=== PATIENT | female | born 1985 | race Caucasian/White ===

== ENCOUNTER 2018-04-02 00:19 | Outpatient (CLI) | payer MEDICAID, SELFPAY ==
--- NOTE | 2018-04-02 12:53 | DI.US_ITS ---
SYMPTOMS/DIAGNOSIS: CHRONIC PELVIC AND PERINEAL PAIN, R10.2, TUGGING SENSATION, H/O POLYCYSTIC OVARIAN SYNDROME PELVIC ULTRASOUND: Transabdominal and transvaginal examination was performed. Comparison is 06/23/15. The uterus is retroverted. The uterus measures 7.6 cm long x 4.4 cm AP x 5 cm transverse. The endometrial stripe is at the upper limits of normal at 1.2 cm. No myometrial mass is present. The left ovary measures 2.9 x 2.4 x 2.6 cm. There are a few small simple follicular cysts. There is a 2 x 1.4 x 1.6 cm simple left ovarian cyst present. There is normal blood flow to the left ovary. No evidence of torsion is present. The right ovary measures 3.6 x 2.2 x 1.9 cm. There are multiple (greater than 12) simple cysts seen in the periphery of the right ovary. There is normal blood flow to the right ovary. No evidence of torsion is present. No free pelvic fluid or hydronephrosis is identified. IMPRESSION: No acute pelvic process.
== END 2018-04-02 00:39 ==
PROVIDERS: PCP Family Medicine; Visit Provider Naturopath
DX: R10.2 Pelvic and perineal pain (principal); E28.2 Polycystic ovarian syndrome
CPT/HCPCS: 76830; 76856

== ENCOUNTER 2018-04-24 02:39 | Outpatient (CLI) | payer MEDICAID, SELFPAY | END 2018-04-24 02:59 | PROVIDERS: PCP Family Medicine; Visit Provider Naturopath | DX: R00.8 Other abnormalities of heart beat (principal) | CPT/HCPCS: 93005; 93010 ==

== ENCOUNTER 2018-08-10 12:42 | Outpatient (REF) | payer MEDICAID, SELFPAY ==
--- NOTE | 2018-08-10 11:00 | PAPFT_PTH ---
PATIENT: Joselin Berman LOC: [facility] U#:[id number] AGE/SX: 33/F ROOM: RE08/10/[address]: Chana Zuniga : 1985 BED: DIS: 08/10/2018 SPEC #: [id number] RECD: 08/11/18 12:24 STATUS: MICHAEL REJoe #: [id number] SANDRO: 08/10/18 11:[address]: Chana Zuniga DEPT: [facility] Cytology RECD BY: Parul Barriga Tissues: 1 - CX/ENDOCX FOR PAP SMEARS Procedures: PAP THIN PREP/UVM Screening Comments: [id number] (UNSATISFACTORY FOR EVALUATION)
== END 2018-08-10 13:02 ==
LOC: NCHCN 12:42
PROVIDERS: PCP Family Medicine; Visit Provider Family Medicine
DX: Z12.4 Encounter for screening for malignant neoplasm of cervix (principal); Z11.51 Encounter for screening for human papillomavirus (HPV); Z00.00 Encounter for general adult medical examination without abnormal findings
CPT/HCPCS: 88142; 87624

== ENCOUNTER 2018-09-18 15:26 | Outpatient (REF) | payer MEDICAID, SELFPAY ==
--- NOTE | 2018-09-18 14:30 | PAPFT_PTH ---
PATIENT: Joselin Berman LOC: [facility] U#:[id number] AGE/SX: 33/F ROOM: RE09/18/[address]: Anika Hess MD : 1985 BED: DIS: 09/18/2018 SPEC #: [id number] RECD: 09/18/18 18:08 STATUS: MICHAEL REQ #: [id number] SANDRO: 09/18/18 14:[address]: Anika Hess DEPT: [facility] Cytology RECD BY: Pennie Coronado ENTERED: 09/18/18 18:08 SP TYPE: PAPFT OTHR DR: Chana Zuniga Tissues: 1 - CX/ENDOCX FOR PAP SMEARS Procedures: PAP THIN PREP/UVM Screening HPV DNA PROBE Comments: [id number]
== END 2018-09-18 15:46 ==
LOC: LBN 15:26
PROVIDERS: PCP Family Medicine; Visit Provider Obstetrics & Gynecology
DX: Z12.4 Encounter for screening for malignant neoplasm of cervix (principal); Z11.51 Encounter for screening for human papillomavirus (HPV); R87.610 Atypical squamous cells of undetermined significance on cytologic smear of cervix (ASC-US)
CPT/HCPCS: 88142; 87624

== ENCOUNTER 2019-08-18 20:37 | Outpatient (REF) | payer MEDICAID, SELFPAY ==
--- NOTE | 2019-08-18 16:00 | PAPFT_PTH ---
PATIENT: Joselin Berman [facility] U[id number] AGE/SX: 34/F ROOM: RE08/18/[address]: Chana Zuniga : 1985 BED: DIS: 08/18/2019 SPEC #: [id number] RECD: 08/19/19 12:47 STATUS: MICHAEL REJoe #: [id number] SANDRO: 08/18/19 16:[address]: Chana Zuniga DEPT: [facility] Cytology RECD BY: Pennie Coronado Tissues: 1 - CX/ENDOCX FOR PAP SMEARS Procedures: PAP THIN PREP/UVM Screening HPV DNA PROBE Comments: [id number]
== END 2019-08-18 20:57 ==
LOC: NCHCN 20:37
PROVIDERS: PCP Family Medicine; Visit Provider Family Medicine
DX: Z12.4 Encounter for screening for malignant neoplasm of cervix (principal); Z11.51 Encounter for screening for human papillomavirus (HPV)
CPT/HCPCS: 88142; 87624

== ENCOUNTER 2019-08-30 15:14 | Outpatient (REF) | payer MEDICAID, SELFPAY ==
[2019-09-01 11:38] LABS: Campylobacter PCR Negative (Negative); Salmonella PCR Negative (Negative); Shiga Toxin PCR Negative (Negative); Shigella/Enteroinvasive Ecoli Negative (Negative)
== END 2019-08-30 15:34 ==
LOC: NCHCN 15:14
PROVIDERS: PCP Family Medicine; Visit Provider Family Medicine
DX: R19.7 Diarrhea, unspecified (principal)
CPT/HCPCS: 87329; 87505; 83630; 87324

== ENCOUNTER 2019-11-04 02:55 | Outpatient (CLI) | payer MEDICAID, SELFPAY ==
[2019-11-04 13:43] LABS: Abs Immature Grans 0.03 10^3/uL (0.0-0.06); Absolute Basophil Count 0.04 10^3/uL (0.0-0.2); Absolute Eosinophil Count 0.06 10^3/uL (0.0-0.7); Absolute Lymphocyte Count 2.57 10^3/uL (1.2-3.4); Absolute Neutrophil Count 5.95 10^3/uL (1.2-6.7); Basophils % 0.4; Eosinophils % 0.6; HCT 40.9 % (36.0-46.0); HGB 13.4 g/dL (11.2-15.7); Immature Grans % 0.3; Lymphocytes % 26.9; MCH 31.2 pg (27.0-33.0); MCHC 32.8 % (32.0-36.0); MCV 95.3 fL (80-95); MPV 9.4 fL (8.0-11.0); Monocytes % 9.4; Neutrophils % 62.4; Nucleated RBC 0 %; Platelet Count 233 10^3/uL (130-400); RBC 4.29 10^6/uL (3.93-5.22); RDW 12.3 % (11.7-14.6); RDW-SD 42.5 fL; WBC 9.55 10^3/uL (4.4-10.8)
[2019-11-04 15:26] LABS: ALT 21 U/L (14-59); AST 13 U/L (15-37); Albumin 3.8 g/dL (3.4-5.0); Alkaline Phosphatase 69 U/L (46-116); BUN 16 mg/dL (7-18); Bilirubin, Total 0.4 mg/dL (0.2-1.0); CREATININE 0.75 mg/dL (0.55-1.02); Chloride 107 mmol/L (98-107); Glucose 79 mg/dL (74-106); Potassium 4.3 mmol/L (3.5-5.1); Sodium 141 mmol/L (136-145); Total Protein 6.9 g/dL (6.4-8.2)
[2019-11-04 15:44] LABS: Vitamin D 25 Total 33.2 ng/ml (30-100)
== END 2019-11-04 03:15 ==
PROVIDERS: PCP Family Medicine; Visit Provider Naturopath
DX: F41.9 Anxiety disorder, unspecified (principal); R53.83 Other fatigue
CPT/HCPCS: 36415; 80053; 81291; 82306; 85025

== ENCOUNTER 2020-09-07 09:43 | Outpatient (REF) | payer MEDICAID, SELFPAY ==
[2020-09-09 13:22] LABS: COVID-19 RT-PCR UVMMC Result Negative (Negative)
== END 2020-09-07 09:44 | disposition home or self-care (01) ==
LOC: NCHCN 09:43
PROVIDERS: PCP Family Medicine; Visit Provider Family Medicine
DX: Z20.822 Contact with and (suspected) exposure to COVID-19 (principal); J02.9 Acute pharyngitis, unspecified; R06.09 Other forms of dyspnea
CPT/HCPCS: U0003

== ENCOUNTER 2020-09-14 05:02 | Outpatient (CLI) | payer MEDICAID, SELFPAY ==
[2020-09-14] MEDS: Inhaler, Assist Device 1 EACH MC (17:55)
[2020-09-14] MEDS: Methacholine 100 MG VIAL IH (17:55)
[2020-09-14] MEDS: Albuterol HFA 18 GM 200 PUFF INH IH (17:55)
--- NOTE | 2020-09-17 18:50 | W.PFT ---
Date of service: 09/14/20 Time of Service: 15:03 Pulmonary Function Test Result Requesting Provider Chana Zuniga Interpretation Spirometry: There is no baseline airflow obstruction. There was a 14% decreased in FEV1 with administration of 16.0mg/mL methacholine. Impression Although there was not a 20% decrease in FEV1 with methacholine, the FVC decreased 23% and the patient experienced chest tightness with test. Technically a negative bronchoprovocation test. Note: Given decrease in FVC would correlate clinically the need for asthma treatment. Clinical Correlation therefore is recommended.
--- NOTE | 2020-09-17 18:57 | W.PFT ---
Date of service: 09/14/20 Time of Service: 15:03 Pulmonary Function Test Result Interpretation Spirometry: There is no airflow limitation. Lung Volumes: Lung volumes are normal Diffusion Capacity: Diffusion is normal Airway Pressure: Airway resistance is normal Impression Normal pulmonary function tests Clinical Correlation therefore is recommended.
== END 2020-09-14 05:03 | disposition home or self-care (01) ==
LOC: RT 05:03
PROVIDERS: PCP Family Medicine; Visit Provider Family Medicine
DX: R06.09 Other forms of dyspnea (principal)
CPT/HCPCS: 94060; 94726; 94729; 95070; 94010; J7674

== ENCOUNTER 2020-11-29 03:43 | Outpatient (CLI) | payer MEDICAID, SELFPAY ==
[2020-11-29 12:21] LABS: Abs Immature Grans 0.02 10^3/uL (0.0-0.06); Absolute Basophil Count 0.04 10^3/uL (0.0-0.2); Absolute Eosinophil Count 0.08 10^3/uL (0.0-0.7); Absolute Lymphocyte Count 2.17 10^3/uL (1.2-3.4); Absolute Monocyte Count 0.65 10^3/uL (0.1-0.8); Absolute Neutrophil Count 4.13 10^3/uL (1.2-6.7); Basophils % 0.6; Eosinophils % 1.1; HCT 43.5 % (36.0-46.0); Immature Grans % 0.3; Lymphocytes % 30.6; MCH 30.7 pg (27.0-33.0); MCHC 32.2 % (32.0-36.0); MCV 95.4 fL (80-95); MPV 9.8 fL (8.0-11.0); Monocytes % 9.2; Neutrophils % 58.2; Nucleated RBC 0 %; Platelet Count 238 10^3/uL (130-400); RBC 4.56 10^6/uL (3.93-5.22); RDW 12.2 % (11.7-14.6); RDW-SD 42.8 fL; WBC 7.09 10^3/uL (4.4-10.8)
[2020-11-29 13:11] LABS: Iron 102 ug/dL (50-170); Total Iron Binding Capacity 347 ug/dL (250-450); Transferrin Sat 29 % (15-50)
[2020-11-29 13:39] LABS: ALT 21 U/L (14-59); AST 12 U/L (15-37); Albumin 4.2 g/dL (3.4-5.0); Alkaline Phosphatase 71 U/L (46-116); Anion Gap 7.4 mmol/L (3-11); BUN 14 mg/dL (7-18); Bilirubin, Total 0.4 mg/dL (0.2-1.0); CO2 27.6 mmol/L (21.0-32.0); CREATININE 0.8 mg/dL (0.55-1.02); Calcium 9.4 mg/dL (8.5-10.1); Chloride 105 mmol/L (98-107); Ferritin 32 ng/mL (8-252); Folate > 20.0 ng/mL (8.6-20.0); Glucose 95 mg/dL (74-106); Potassium 4.7 mmol/L (3.5-5.1); Sodium 140 mmol/L (136-145); Total Protein 7.8 g/dL (6.4-8.2); Vitamin B12 1724 pg/mL (193-986)
[2020-12-04 17:28] LABS: Candida albicans IgG 33.3 mcg/mL (<52.0)
== END 2020-11-29 03:44 | disposition home or self-care (01) ==
LOC: LBO 03:43
PROVIDERS: PCP Family Medicine; Visit Provider Naturopath
DX: R58 Hemorrhage, not elsewhere classified (principal); R14.0 Abdominal distension (gaseous)
CPT/HCPCS: 36415; 80053; 86001; 82607; 82728; 82746; 83540; 83550; 85025

== ENCOUNTER 2020-12-15 02:19 | Outpatient (CLI) | payer MEDICAID, SELFPAY ==
--- NOTE | 2020-12-15 13:57 | DI.US_ITS ---
APPROVED REPORT EXAM: Comprehensive 2D, Doppler, and color-flow Echocardiogram Patient Location: Out-Patient Communications Program Manager: Eloise Mcknight RDCS (AE) Indications: Dyspnea on exertion Other Information Study Quality: Adequate Conclusion Normal left ventricular wall thickness and chamber size. Estimated ejection fraction is 60 to 65%. There are no segmental wall motion abnormalities Normal right ventricular size and systolic function Both atria are normal in size There are no structural or hemodynamically significant valvular abnormalities Normal estimated right ventricular systolic pressure, 16 mmHg Wall motion Left Ventricle The left ventricle is normal size. The left ventricular systolic function is normal. The left ventric ular ejection fraction is within the normal range. There is normal left ventricular wall thickness. T here is normal LV segmental wall motion. There is no ventricular septal defect visualized. LVEF is 60 -65%. Right Ventricle The right ventricle is normal size. The right ventricular systolic function is normal. The RVSP is 15 .9 mmHg. Atria The left atrium size is normal. The right atrium size is normal. The interatrial septum is intact wit h no evidence for an atrial septal defect. Aortic Valve The aortic valve is normal in structure. Aortic valve is trileaflet. There is no aortic valvular sten osis. No aortic regurgitation is present. Mitral Valve The mitral valve is normal in structure. No evidence of mitral valve stenosis. Trace mitral regurgita tion. Tricuspid Valve The tricuspid valve is normal in structure. There is no tricuspid valve stenosis. Trace tricuspid reg urgitation. Pulmonic Valve The pulmonary valve is normal in structure. There is no pulmonic valvular stenosis. There is no pulmo cesar valvular regurgitation. Great Vessels The aortic root is normal in size. Ascending aorta is not well visualized. Aortic arch is normal in c aliber. IVC is normal in size and collapses >50% with inspiration. Pericardium There is no pericardial effusion. 2D Dimensions IVSD d PLAX 0.81 cm F: 0.6-1.0 LV Vol A2C d MOD 93.5 mL LVPW d PLAX 0.89 cm F: 0.6 - 1.0 LV Vol A4C d MOD 91.8 mL LVID d PLAX 4.08 cm F: 3.8 - 5.2 LA vol/ BSA A2C s A-L 16.5 mL/m2 LVDs 2.75 cm F: 2.2 - 3.5 LA vol/ BSA A4C s A-L 22.0 mL/m2 Ao Root d 2.38 cm F: 2.7 - 3.3 LA Vol/ BSA Biplane s A-L 20.2 mL/m2 RA Area A4C 7.49 cm2 LA Area A4C s MOD 13.72 cm2 RA Vol/ BSA A4C s A-L 9.6 mL/m2 LA Area A2C s MOD 11.21 cm2 LV EF Teichholz 60.6 % LV EF A4C MOD 58.3 % LVEF ([employer]) 59.00 % F: 54 - 74 LV EF A2C MOD 60.1 % LV Volume 76.34 mL F: 46 - 106 LV EF Biplane MOD 59.0 % LV Volume Index 49.25 mL/m2 F: 29 - 61 SV 54.78 mL LV Vol Biplane MOD 92.9 mL SV Index 35.29 mL/m2 FS 32.00 % M-Mode TAPSE 2.36 cm (M/F) >1.7 LV Diastology MV E' medial 0.148 (>0.07 m/s) E/A Ratio 1.9 LV E/e MED 5.75 (<14) MV E Vmax 0.86 (0.4-1.3 m/s) MV E' lateral 0.238 (>0.1 m/s) MV A Vmax 0.45 (0.4-1.3 m/s) LV E/e LAT 3.60 (<14) MV E/A Ratio 1.79 MV E/E' medial 5.78 MV E/E' lateral 3.60 Aortic Valve LVOT Area 2.95 cm2 AoV Area Vmax 2.10 cm2 LVOT Vmax 1.07 m/s AoV Area/ BSA (Vmax) 1.35 cm2/m2 LVOT Mean Jose Francisco. 0.63 m/s YONI Mean Jose Francisco. 1.79 cm2 LVOT Peak Grad 4.6 mmHg YONI Mean Jose Francisco. Index 1.16 cm2/m2 LVOT Mean Grad 2.0 mmHg LVOT VTI 0.229 m LVOT Diam s 1.90 cm AoV Vmax 1.51 m/s Velocity Ratio 0.70 AoV Mean Jose Francisco. 1.04 m/s AoV Peak Grad 9.1 mmHg LVOT SV 67.49 mL AoV Mean Grad 4.8 mmHg AoV VTI 0.283 m AoV Area VTI 2.38 cm2 AoV Area/ BSA (VTI) 1.53 cm/m2 Mitral Valve MV DT 174 (160-240 msec) MV PHT 50 msec MV Area PHT 4.36 cm2 MV VTI 0.260 m MV Area VTI 2.59 (4.0-6.0 cm2) Pulmonary Valve PV Vmax 0.96 (0.5-1.5 m/s) RVOT Peak Gr. 2.12 mmHg PV Peak Grad 3.7 mmHg RVOT Mean Gr. 1.15 mmHg PV Mean Grad 2.1 mmHg RVOT VTI 0.149 m PV VTI 0.199 m RVOT Vmax 0.73 m/s Tricuspid Valve TR Peak Grad 12.9 mmHg TR Vmax 1.80 m/s RA Pressure 3.00 mmHg RVSP (TR) 15.9 mmHg
== END 2020-12-15 02:39 ==
PROVIDERS: PCP Family Medicine; Visit Provider Family Medicine
DX: R06.09 Other forms of dyspnea (principal)
CPT/HCPCS: 93306

== ENCOUNTER 2021-01-16 09:11 | Outpatient (CLI) | payer MEDICAID, SELFPAY ==
--- NOTE | 2021-01-16 09:00 | RT.EKG_ITS ---
APPROVED REPORT Exam: Resting ECG Reason for Exam: lightheaded Patient Location: O HR:76 bpm ECG Measurements Heart Rate 76 AXIS OK 134 P 16 QRSd 75 QRS 19 QT 376 T 9 QTc 423 Conclusion Sinus rhythm...normal P axis, V-rate 50- 99 Borderline T wave abnormalities...T/QRS ratio < 1/20 or flat T Baseline wander in lead(s) V4 Normal Electrocardiogram
== END 2021-01-16 09:12 | disposition home or self-care (01) ==
LOC: DI.CARD 09:12
PROVIDERS: PCP Family Medicine; Visit Provider Internal Medicine Cardiovascular Disease
DX: R42 Dizziness and giddiness
CPT/HCPCS: 93010

== ENCOUNTER 2021-03-29 18:27 | Outpatient (REF) | payer MEDICAID, SELFPAY ==
[2021-03-30 10:15] LABS: HIV-1/2 Ag & Ab Screen Negative (Negative)
== END 2021-03-29 18:28 | disposition home or self-care (01) ==
LOC: NCHCN 18:27
PROVIDERS: PCP Family Medicine; Visit Provider Family Medicine
DX: Z11.4 Encounter for screening for human immunodeficiency virus [HIV] (principal)
CPT/HCPCS: 87389

== ENCOUNTER 2021-06-05 05:41 | Outpatient (CLI) | payer MEDICAID, SELFPAY | END 2021-06-05 05:42 | disposition home or self-care (01) | LOC: LBO 05:41 | PROVIDERS: PCP Family Medicine; Visit Provider Naturopath | DX: Q79.62 Hypermobile Ehlers-Danlos syndrome (principal) | CPT/HCPCS: 36415; 82525 ==

== ENCOUNTER 2021-11-05 02:38 | Outpatient (CLI) | payer MEDICAID, SELFPAY ==
[2021-11-05 14:27] LABS: Abs Immature Grans 0.02 10^3/uL (0.0-0.06); Absolute Basophil Count 0.04 10^3/uL (0.0-0.2); Absolute Eosinophil Count 0.04 10^3/uL (0.0-0.7); Absolute Lymphocyte Count 1.88 10^3/uL (1.2-3.4); Absolute Monocyte Count 0.59 10^3/uL (0.1-0.8); Absolute Neutrophil Count 4.65 10^3/uL (1.2-6.7); Basophils % 0.6; Eosinophils % 0.6; HCT 43.4 % (36.0-46.0); HGB 14.3 g/dL (11.2-15.7); Immature Grans % 0.3; MCH 31.5 pg (27.0-33.0); MCHC 32.9 % (32.0-36.0); MCV 96 fL (80-95); MPV 9.7 fL (8.0-11.0); Monocytes % 8.2; Neutrophils % 64.3; Platelet Count 227 10^3/uL (130-400); RBC 4.54 10^6/uL (3.93-5.22); RDW 12.3 % (11.7-14.6); RDW-SD 43.7 fL; WBC 7.22 10^3/uL (4.4-10.8)
[2021-11-07 09:09] LABS: Homocysteine 7.8 umol/L (5.0-13.9)
== END 2021-11-05 02:39 | disposition home or self-care (01) ==
LOC: LBO 02:38
PROVIDERS: PCP Family Medicine; Visit Provider Naturopath
DX: L50.8 Other urticaria (principal)
CPT/HCPCS: 36415; 83090; 83088; 85025

== ENCOUNTER 2022-11-28 01:47 | Outpatient (CLI) | payer MEDICAID, SELFPAY ==
--- OUTSIDE RECORDS SUMMARY | 2022-11-22 13:08 | XMS_ITS | Continuity of Care Document ---
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 Name Role Phone RAJ RM Chandu Primary Care Physician Encounter [facility] NBR [id number] Date(s): 11/15/21 - 11/15/21 [facility] [address] [place], [place] [address] Encounter Diagnosis Instability of right shoulder joint(Discharge Diagnosis) - 11/15/21 Discharge Disposition: Home or Self Care Attending Physician: PEDRO Smas Allergies, Adverse Reactions, Alerts Substance Reaction Severity Status codeine Nausea Mild Active penicillin Itching Mild Active CeleXA 1 Skin Mild Active Scenic [place] 2 Rash Severe Active 1blotchy skin 2mouth / facial rash Medications amitriptyline 10 mg =, ONLY TAKES 5 MG, 0 Refill(s) Start Date: 11/15/21 Status: Ordered baclofen 10 mg =, Oral, 0 Refill(s) Start Date: 11/15/21 Status: Ordered Concerta 27 mg/24 hr oral tablet, extended release 27 mg = 1 tab, Oral, every morning, 0 Refill(s) Start Date: 11/15/21 Status: Ordered cyclobenzaprine 10 mg oral tablet See Instructions, PRN as needed for spasm, 1 tab Oral TID, 0 Refill(s) Start Date: 11/15/21 Status: Ordered gabapentin 300 mg oral capsule 0 Refill(s) Start Date: 11/15/21 Status: Ordered ibuprofen 200 mg =, Oral, 0 Refill(s) Start Date: 11/15/21 Status: Ordered ketorolac 10 mg =, Oral, 0 Refill(s) Start Date: 11/15/21 Status: Ordered Maxalt 10 mg oral tablet 10 mg = 1 tab, Oral, 0 Refill(s) Start Date: 11/15/21 Status: Ordered Multi Vitamin+ See Instructions, 0 Refill(s) Start Date: 11/15/21 Status: Ordered ProAir HFA See Instructions, 2 puffs Inhale, 0 Refill(s) Start Date: 11/15/21 Status: Ordered Probiotic 10 Ultra Strength 0 Refill(s) Start Date: 11/15/21 Status: Ordered Vitamin B12 1,000 mcg =, Oral, Daily, 0 Refill(s) Start Date: 11/15/21 Status: Ordered Vitamin C 500 mg oral tablet 500 mg = 1 tab, Oral, Daily, # 90 tab, 0 Refill(s) Start Date: 11/15/21 Status: Ordered Vitamin D2 50 mcg (2000 intl units) oral capsule 50 mcg = 1 cap, Oral, Daily, with food, # 60 cap, 0 Refill(s) Start Date: 11/15/21 Status: Ordered Voltaren 1% topical gel 1 rashaun, Topical, QID, # 100 g, 0 Refill(s) Start Date: 11/15/21 Status: Ordered Problem List Condition Confirmation Course Effective Dates Status Health St atus Informant Anxiety Confirmed Active Chronic insomnia Confirmed Active Depression Confirmed Active Mychal-Danlos syndrome Confirmed Active Fibromyalgia Confirmed Active IBS (irritable bowel syndrome) Confirmed Active Headache, migraine Confirmed Active OCD (obsessive compulsive disorder) Confirmed Active Lumbar spine pain Confirmed Active PCOS (polycystic ovarian syndrome) Confirmed Active PTSD (post-traumatic stress disorder) Confirmed Active Procedures Procedure Date Related Diagnosis Body Site Status Colonoscopy Completed Endoscopy Completed Vital Signs Most recent to oldest [Reference Range]: 1 Peripheral Pulse Rate [60-100 bpm] 105 b pm *HI* (11/15/21 11:27 AM) Blood Pressure [90-140/60-90 mmHg] 126/8 4mmHg (11/15/21 11:27 AM) Weight 56.97 kg (11/15/21 11:27 AM) Weight Measured (lbs) 125.597 lb (11/15/21 11:27 AM) Height 154.94 cm (11/15/21 11:27 AM) Height/Length Measured (inches) 61 inch (11/15/21 11:27 AM) BSA Measured 1.57 m2 (11/15/21 11:27 AM) Body Mass Index 23.73 kg/m2 (11/15/21 11:27 AM) Social History Social History Type Response Tobacco Never tobacco user T obacco Use:. Sex Patient Care team information Personnel Name: RAJ RM Address: Address: [address] [place] [id number] [place]
--- OUTSIDE RECORDS SUMMARY | 2022-11-22 13:08 | XMS_ITS | Continuity of Care Document ---
Author Name Unknown Organization [facility] Address [address] [place] [id number] Care Team Providers Care Ball Warper Tender Name Role Phone SUJEY, RAJ Schofield Primary Care Physician [phone] Encounter [facility] NBR [id number] Date(s): 12/18/21 - 12/18/[address] [address]- Discharge Disposition: Home or Self Care Attending Physician: PEDRO Sams Admitting Physician: PEDRO Sams Allergies, Adverse Reactions, Alerts Substance Reaction Severity Status codeine Nausea Mild Active penicillin Itching Mild Active CeleXA 1 Skin Mild Active Christo 2 Rash Severe Active 1blotchy skin 2mouth / facial rash Assessment and Plan Future Scheduled Tests Radiology* XR Arthrogram Shoulder Right 12/18/21 * XR Arthrogram Wrist Left 12/18/21 Medications amitriptyline 10 mg =, ONLY TAKES [...] Body Site Status Colonoscopy Completed Endoscopy Completed Results Radiology Reports * Exam Date Time Procedure Performing Provider Status 12/18/21 12:17 PM MRI Shoulder w/ Contrast Right Mitul Luis; Janeen (Verified) Notes: (MRI Shoulder w/ Contrast Right) Reason For Exam: instability MRI Shoulder w/ Contrast Right EXAM DESCRIPTION: MRI Shoulder w/ Contrast Right 12/18/2021 INDICATION: INSTABILITY TECHNIQUE: Multiplanar MRI examination of the right shoulder following arthrography as detailed on arthrogram report of the same date. Examination consists of fat-suppressed T1 weighted images in 3 planes as well as coronal oblique T1 and fat suppressed T2 weighted images with sagittal oblique T1 weighted images. COMPARISON: Routine radiographs of the right shoulder from 11/02/2021 FINDINGS: No full-thickness supraspinatus, infraspinatus or subscapularis tendon tear with no findings to suggest significant tendinosis. Teres minor tendon insertion appears intact. No rotator cuff muscle atrophy/volume loss or fatty infiltration Rotator interval tear with extravasation of small amount of contrast into the anterior aspect of the subacromial/subdeltoid bursa best seen on sagittal oblique fat-suppressed T1 series image numbers 12 and 13. No AC joint arthritic changes. No significant downsloping of the acromion. Type 2-3 acromion. No os acromiale. No significant glenohumeral joint arthritic changes. No glenohumeral joint intra-articular body is identified. No regional marrow edema to suggest bone contusion or occult fracture with mild nonspecific cystic changes in the humeral head. Coracoacromial ligament appears intact. Biceps anchor appears intact. Proximal aspect of the long head biceps tendon is normally situated in the bicipital groove with no intrasubstance signal abnormality to suggest tendinosis. Short head biceps tendon origin appears intact. Small gadolinium containing defect involving the superior glenoid labrum consistent with type 2 SLAP tear. Glenoid labrum otherwise appears intact. No Hill-Sachs or Bankart lesion. No regional muscle edema to suggest strain or myositis. IMPRESSION: Rotator interval tear with extravasation of small amount of contrast into the anterior aspect of the subacromial/subdeltoid bursa. No full-thickness supraspinatus, infraspinatus or subscapularis tendon tear with no rotator cuff muscle atrophy Type 2 SLAP tear. JOB #: [id number] Final Signed by: Cristobal Colón MD Signed (Electronic Signature): 12/18/2021 12:32 pm * Exam Date Time Procedure Performing Provider Status 12/18/21 11:10 AM XR Arthrogram Shoulder Right DomainUs er, Generated; Auth (Verified) Notes: (XR Arthrogram Shoulder Right) Reason For Exam: right shoulder instability XR Arthrogram Shoulder Right EXAM DESCRIPTION: XR Arthrogram Shoulder Right 12/18/2021 11:10 INDICATION: RIGHT SHOULDER INSTABILITY COMPARISON: None. FLUORO TIME: Fluoro time utilized was 0.2 minutes. Image number: 3 PROCEDURE: A right shoulder arthrogram was performed. The procedure and potential complications including bleeding and infection were explained to the patient and informed consent was obtained. The skin overlying the anterior aspect of the right glenohumeral joint was prepped and draped according to sterile protocol. The skin and subcutaneous soft tissues in this region were anesthetized with 1% lidocaine. Utilizing fluoroscopic guidance, a 20 gauge spinal needle was advanced into the right glenohumeral joint space. Approximately 12 mL of dilute gadolinium solution, 1:200, was injected. Solution consisted of 10cc of 0.9% NS, 10 cc of Isovue 300, and 0.1 cc of Multihance. The patient tolerated the procedure well without immediate complication and was transferred to the MRI suite. FINDINGS: Normal capacity of the right glenohumeral joint space. IMPRESSION: Successful right shoulder arthrogram for MRI. Please see right shoulder MRI report of the same date. JOB #: [id number] Final Signed by: Cristobal Colón MD Signed (Electronic Signature): 12/18/2021 11:13 am Social History Social History Type Response Tobacco Never tobacco user T obacco Use:. Sex RF Shoulder - right Arthrogram * Cristobal Colón MD: VERIFY, VERIFY Event Display: Report EXAM DESCRIPTION: XR Arthrogram Shoulder Right 12/18/2021 11:10 INDICATION: RIGHT SHOULDER INSTABILITY COMPARISON: None. FLUORO TIME: Fluoro time utilized was 0.2 minutes. Image number: 3 PROCEDURE: A right shoulder arthrogram was performed. The procedure and potential complications including bleeding and infection were explained to the patient and informed consent was obtained. The skin overlying the anterior aspect of the right glenohumeral joint was prepped and draped according to sterile protocol. The skin and subcutaneous soft tissues in this region were anesthetized with 1% lidocaine. Utilizing fluoroscopic guidance, a 20 gauge spinal needle was advanced into the right glenohumeral joint space. Approximately 12 mL of dilute gadolinium solution, 1:200, was injected. Solution consisted of 10cc of 0.9% NS, 10 cc of Isovue 300, and 0.1 cc of Multihance. The patient tolerated the procedure well without immediate complication and was transferred to the MRI suite. FINDINGS: Normal capacity of the right glenohumeral joint space. IMPRESSION: Successful right shoulder arthrogram for MRI. Please see right shoulder MRI report of the same date. JOB #: [id number] Final Signed by: Cristobal Colón MD Signed (Electronic Signature): 12/18/2021 11:13 am MR Shoulder - right W contrast IV * Cristobal Colón MD: VERIFY, VERIFY Event Display: Report EXAM DESCRIPTION: MRI Shoulder w/ Contrast Right 12/18/2021 INDICATION: INSTABILITY TECHNIQUE: Multiplanar MRI examination of the right shoulder following arthrography as detailed on arthrogram report of the same date. Examination consists of fat-suppressed T1 weighted images in 3 planes as well as coronal oblique T1 and fat suppressed T2 weighted images with sagittal oblique T1 weighted images. COMPARISON: Routine radiographs of the right shoulder from 11/02/2021 FINDINGS: No full-thickness supraspinatus, infraspinatus or subscapularis tendon tear with no findings to suggest significant tendinosis. Teres minor tendon insertion appears intact. No rotator cuff muscle atrophy/volume loss or fatty infiltration Rotator interval tear with extravasation of small amount of contrast into the anterior aspect of the subacromial/subdeltoid bursa best seen on sagittal oblique fat-suppressed T1 series image numbers 12 and 13. No AC joint arthritic changes. No significant downsloping of the acromion. Type 2-3 acromion. No os acromiale. No significant glenohumeral joint arthritic changes. No glenohumeral joint intra-articular body is identified. No regional marrow edema to suggest bone contusion or occult fracture with mild nonspecific cystic changes in the humeral head. Coracoacromial ligament appears intact. Biceps anchor appears intact. Proximal aspect of the long head biceps tendon is normally situated in the bicipital groove with no intrasubstance signal abnormality to suggest tendinosis. Short head biceps tendon origin appears intact. Small gadolinium containing defect involving the superior glenoid labrum consistent with type 2 SLAP tear. Glenoid labrum otherwise appears intact. No Hill-Sachs or Bankart lesion. No regional muscle edema to suggest strain or myositis. IMPRESSION: Rotator interval tear with extravasation of small amount of contrast into the anterior aspect of the subacromial/subdeltoid bursa. No full-thickness supraspinatus, infraspinatus or subscapularis tendon tear with no rotator cuff muscle atrophy Type 2 SLAP tear. JOB #: [id number] Final Signed by: Cristobal Colón MD Signed (Electronic Signature): 12/18/2021 12:32 pm Patient Care team information Care Team Personnel Name: RAJ RM Position: No Access Member Role: Primary Care Physician Address: Address: [address] [place] [id number] [place]
--- OUTSIDE RECORDS SUMMARY | 2022-11-22 13:08 | XMS_ITS | Continuity of Care Document ---
Author Name Unknown Organization [facility] Address [address] [place] [address] Care Team Providers Care Layout Designer Name Role Phone RAJ MR Primary Care Physician [phone] [facility] NBR [id number] Date(s): 01/10/22 - 01/10/22 [facility] [address], [place] [id number] Encounter Diagnosis Instability of right shoulder joint(Discharge Diagnosis) - 01/10/22 Mychal-Danlos syndrome(Discharge Diagnosis) - 01/10/22 Discharge Disposition: Home or Self Care Attending Physician: PEDRO Sams Allergies, Adverse Reactions, Alerts Substance Reaction Severity Status codeine Nausea Mild Active penicillin Itching Mild Active CeleXA 1 Skin Mild Active Christo 2 Rash Severe Active 1blotchy skin 2mouth / facial rash Assessment and Plan Future Scheduled Tests Radiology* XR Arthrogram Shoulder Right 12/18/21 * XR Arthrogram Wrist Left 12/18/21 Functional Status 01/10/22 Other exposure to Infectious Disease Non e Medications amitriptyline 10 mg =, ONLY TAKES [...] Range]: 1 Peripheral Pulse Rate [60-100 bpm] 97 bp m (01/10/22 11:55 AM) Blood Pressure [90-140/60-90 mmHg] 126/7 6mmHg (01/10/22 11:55 AM) Weight 57.15 kg (01/10/22 11:55 AM) Weight Measured (lbs) 125.994 lb (01/10/22 11:55 AM) Height 154.94 cm (01/10/22 11:55 AM) Height/Length Measured (inches) 61 inch (01/10/22 11:55 AM) BSA Measured 1.57 m2 (01/10/22 11:55 AM) Body Mass Index 23.81 kg/m2 (01/10/22 11:55 AM) Social History Social History Type Response Tobacco Never tobacco user T obacco Use:. Sex Physician Outpatient Note * PEDRO Sams: PERFORM Event Display: Office Clinic Note Physician Authored Date: [id number] BALTAZAR BENTON :1985 Age:36 years Sex:Female Visit Date:01/10/2022 Primary Care Physician: RAJ RM Chief Complaint RIGHT SHOULDER PAIN History of Present Illness Patient comes in today with continued right shoulder??instability. ??She has had many years of??recurrent subluxations. ??She does have Ehler Danlos syndrome. ??She is generally very active and participates in [employer] dancing for recreation,??and is also a??mother.?? She tries to stay active and keep her strength although??her right shoulder is??continuing to bother her. ??She has been through multiple courses of physical therapy at [facility].?? This is not??decreased her subluxation episodes. Physical Exam Vitals & Measurements HR:??97??(Peripheral)?? BP:??126/76?? SpO2:??100%?? HT:??154.94??cm?? WT:??57.15??kg?? BMI:??23.81?? BSA:??1.57?? General: Alert and oriented x3, pleasant cooperative, in no acute distress, appears to be their stated age, is generally fit appearing.? Right shoulder:??She does shift posteriorly 1+??and this is uncomfortable for her. ??She shifts anteriorly??at 1 with a good endpoint. ??Negative sulcus testing. ??Positive apprehension and relocation testing.?? Nontender about her proximal biceps??although she does have positive speeds and Tipton's. ??Nontender over AC joint negative crossarm adduction testing. ??Full range of motion in all planes.?? Motor or sensory reflex neurovascular exam distally is intact. Assessment/Plan 1.??Mychal-Danlos syndrome??Q79.69 2.??Instability of right shoulder joint??M25.311 Patient comes in today for review of her MRI of her right shoulder instability.?? As she is gettingrecurrent subluxations,??and physical therapy is not helping,??and her ADLs are negatively affected, we discussed her MRI at length. ??She has??right shoulder type II SLAP tear, a rotator interval tea r,??and??shoulder instability with subacromial impingement??syndrome.?? We discussed her options including doing nothing versus continued therapy versus surgery. ??The surgery would include a right shoulder arthroscopy,??type II SLAP repair, and stabilization.?? The benefits, risk, complications, and postoperative course were discussed with the patient at length. ??She would like to think about this. Problem List/Past Medical History Ongoing Anxiety Chronic insomnia Depression Mychal-Danlos syndrome Fibromyalgia Headache, migraine IBS (irritable bowel syndrome) Lumbar spine pain OCD (obsessive compulsive disorder) PCOS (polycystic ovarian syndrome) PTSD (post-traumatic stress disorder) Historical No qualifying data Procedure/Surgical History ???Colonoscopy???Endoscopy Medications amitriptyline, 10 mg baclofen, 10 mg, Oral Concerta 27 mg/24 hr oral tablet, extended release, 27 mg= 1 tab, Oral, every morning cyclobenzaprine 10 mg oral tablet, See Instructions, PRN gabapentin 300 mg oral capsule ibuprofen, 200 mg, Oral ketorolac, 10 mg, Oral Maxalt 10 mg oral tablet, 10 mg= 1 tab, Oral Multi Vitamin+, See Instructions ProAir HFA, See Instructions Probiotic 10 Ultra Strength Vitamin B12, 1000 mcg, Oral, Daily Vitamin C 500 mg oral tablet, 500 mg= 1 tab, Oral, Daily Vitamin D2 50 mcg (2000 intl units) oral capsule, 50 mcg= 1 cap, Oral, Daily Voltaren 1% topical gel, 1 rashaun, Topical, QID Allergies Christo??(Rash) CeleXA??(Skin) codeine??(Nausea) penicillin??(Itching) Social History Alcohol Current Electronic Cigarette/Vaping Electronic Cigarette Use: Never. Employment/School Unemployed Tobacco Never tobacco user Tobacco Use:. Family History Arthritis: Mother, Grandfather (M) and Grandmother (M). Diabetes mellitus: Mother. Hypertension: Grandmother (M). Osteoarthritis: Mother, Grandfather (M) and Grandmother (M). Stroke: Grandfather (M). Diagnostic Results Diagnostic Study Interpretation: An MRI obtained at [facility] dated 12/18/2021 shows??a rotator interval tear,??no os acromiale, a type II-III acromion.?? No??glenohumeral arthritic changes are noted.?? There is a type II SLAP tear. Electronically Signed on 01/10/22 12:51 PM PEDRO Sams Patient Care team information Personnel Name: RAJ RM Address: Address: [address] [place] [id number] [place] [address]
--- NOTE | 2022-11-28 08:15 | DI.MRI_ITS ---
Exam(s) MR LOWER JOINT LT W EXAM: MR LOWER JOINT LT W CLINICAL HISTORY: PAIN,labral tear lt hip,s73.192a TECHNIQUE: Multiplanar multisequence MRI arthrogram of left hip was performed COMPARISON: RF RF ARTHROGRAM RAD W CT OR MRI from 11/28/2022 FINDINGS: Bones: There is no evidence of a fracture or avascular necrosis. There is no evidence of a labral t ear. No bone marrow edema is seen. The SI joints and symphysis pubis are well maintained. Musculotendinous structures: Musculotendinous structures demonstrate no abnormality. Intrapelvic str uctures demonstrate no significant abnormality. IMPRESSION: 1. There is no evidence of a labral tear. 2. No evidence of avascular necrosis or fracture. 3. No evidence of musculotendinous injury. DATA REPOSITORY:
--- NOTE | 2022-11-28 14:00 | DI.RAD_ITS ---
Exam(s) RF ARTHROGRAM RAD W CT OR MRI EXAM: RF ARTHROGRAM RAD W CT OR MRI CLINICAL HISTORY: pain,labral tear lt hip joint,s73.192a TECHNIQUE: 2D and realtime digital imaging was performed. CONTRAST MATERIAL: Water soluble contrast was administered. COMPARISON: No exams were available for comparison FINDINGS: Fluoroscopy was provided for Dr. Zaragoza during the performance of a left hip arthrogram. The patient was prepped and draped in the usual sterile fashion. Local anesthesia was administered. The joint wa s accessed using a spinal needle and confirmed under fluoroscopy. A solution containing saline, Omni paque and Dotarem was injected into the joint. Images were obtained. The patient tolerated the proced ure well. Final instructions were given to the patient and they left the department in good condition . IMPRESSION: Successful arthrogram under fluoroscopic guidance. The patient was advised to return to the emergency room if any signs of bleeding or infection occur. RADIATION DOSE DELIVERED: Shirleyr=6.93 mGy
[2022-11-28] MEDS: Bupivacaine 0.5% Pres-Free 10 ML VIAL IJ (14:23)
[2022-11-28] MEDS: Normal Saline - Diluent 50 ML VIAL IJ (14:23)
[2022-11-28] MEDS: Gadoterate meglumine 20 ML VIAL IVP (14:24)
[2022-11-28] MEDS: Omnipaque 300 MG/ML 10 ML BTL IJ (14:24)
== END 2022-11-28 02:07 ==
PROVIDERS: PCP Family Medicine; Visit Provider Student in an Organized Health Care Education/Training Program
DX: S73.192A Other sprain of left hip, initial encounter (principal)
CPT/HCPCS: 23350; 77002; 73722; 82565

== ENCOUNTER 2023-06-18 16:45 | Outpatient (REF) | payer MEDICAID, SELFPAY ==
[2023-06-18 20:45] LABS: Hemoglobin A1C 5.2 % (<5.7)
== END 2023-06-18 16:46 | disposition home or self-care (01) ==
LOC: NCHCN 16:45
PROVIDERS: PCP Family Medicine; Visit Provider Family Medicine
DX: Z13.1 Encounter for screening for diabetes mellitus (principal)
CPT/HCPCS: 83036

== ENCOUNTER 2023-10-28 03:34 | Outpatient (CLI) | payer MEDICAID, SELFPAY ==
--- NOTE | 2023-10-29 09:43 | W.NUTRFU ---
Date of service: 10/28/23 Time of Service: 12:30 Nutrition Note NOTE: Joselin comes in for nutrition visit - referred for weight management, but with other priorities that appear to impede her progress. Pt has many food intolerances, with diarrhea predominant IBS and also states gastroparesis, reflux, and PCOS impede her progress and impact her daily life. She has experimented with FODMAP diet. She avoids dairy for the most part but will tolerate limited amounts of cheeses and yogurt. She describe a lot of foods as hit of miss in that what may be tolerated at one eating occasion is not consistently tolerated at another. Usually her eating pattern results in 2 meals per day. She reports most days for breakfast having 1-2 eggs with olive oil and salt (managning POTS as well) with some spinach and fruit (berries). Has found some supplements to be be helpful in her toleration of foods but financial constraints prevents this currently. Joselin keeps a journal with notes on her intake and on managing her conditions and has worked at identifying common trigger foods. She states she had great relief of GI symptoms when taking a supplement called Atrantil - a propriety blend of mostly peppermint leaf, quebracho extract, and horse chestnut which claim to help reduce methane and hydrogen sulfide product and and help move bacteria from sm intestine back into colon. She has stopped taking this purely out of cost constraints. I suggested to work with a proactive menu that considers a macronutrient goal to prioritize weight management and suggested 1400kcals with target of ~100g protein daily, 140g CHO daily (with at least 20g coming from fiber), and ~47g fat. encouraged hdration with at least 60oz free water daily. She enjoys activity and is saving to purchase a pole to get into pole dancing again - she has found it to be an intense and enjoyable workout. Bellydancing is also an activity she would like to do more consistently. It was difficult to work on menu planning due to multiple intolerances with foods. I suggested that she create a proactive menu using foods consistently tolerated that work within her macros and continue to work with provider, GI specialist and other specialists to help with intolerance. Suggested taking the FODMAP diet a little more in-depth and eliminate all high FODMAPS for a 2 week period and re-challenge with 1 of the 6 categories per week to see if that category has more significant impact on her GI symptoms. - resources offered. Plan to reach out to Joselin in ~1 month via phone call and check in on symptoms, progress with weight mgt and see if she would like any follow up visits or needs any more resources to help trouble shoot. Time Spent in Nutritional Counseling and Treatment: 60 min
== END 2023-10-28 03:35 | disposition home or self-care (01) ==
LOC: DS 03:34
PROVIDERS: PCP Family Medicine; Visit Provider Dietitian, Registered
DX: E11.9 Type 2 diabetes mellitus without complications (principal)
CPT/HCPCS: 00123; 97802

== ENCOUNTER 2024-06-10 01:52 | Outpatient (CLI) | payer MEDICAID, SELFPAY ==
--- NOTE | 2024-06-10 07:45 | DI.RAD_ITS ---
Exam(s) XR FOOT RT COMPLETE EXAM: XR FOOT RT COMPLETE CLINICAL HISTORY: Right foot pain,m79.671. TECHNIQUE: 2D digital imaging was performed of the right foot. Three images were obtained. AP, obl ique and lateral views were obtained. COMPARISON: No exams were available for comparison FINDINGS: BONES: No acute fracture is present. No bony destructive lesion is seen. JOINTS: No dislocation present. The joint spaces are well maintained. SOFT TISSUE: Normal. IMPRESSION: Unremarkable radiographs of the right foot. DATA REPOSITORY: RADIATION DOSE DELIVERED:
== END 2024-06-10 02:12 ==
PROVIDERS: PCP Family Medicine; Visit Provider Podiatrist
DX: M79.671 Pain in right foot (principal)
CPT/HCPCS: 73630

== ENCOUNTER 2024-09-17 17:43 | Outpatient (REF) | payer MEDICAID, SELFPAY ==
--- NOTE | 2024-09-17 15:05 | PAPFT_PTH ---
PATIENT: Joselin Berman LOC: [facility] U#:[id number] AGE/SX: 39/F ROOM: RE09/17/[address]: Chana Zuniga : 1985 BED: DIS: 09/17/2024 SPEC #: [id number] RECD: 09/20/24 13:12 STATUS: MICHAEL REJoe #: [id number] SANDRO: 09/17/24 15:[address]: Chana Zuniga DEPT: [facility] Cytology RECD BY: Pennie Coronado Tissues: 1 - CX/ENDOCX FOR PAP SMEARS Procedures: PAP THIN PREP/UVM Screening HPV DNA PROBE Comments: [id number] (HPV 16 & 18/45)
== END 2024-09-17 17:44 | disposition home or self-care (01) ==
LOC: NCHCN 17:43
PROVIDERS: PCP Family Medicine; Visit Provider Family Medicine
DX: Z12.4 Encounter for screening for malignant neoplasm of cervix (principal); Z01.419 Encounter for gynecological examination (general) (routine) without abnormal findings
CPT/HCPCS: 88142; 87624